=== PATIENT | male | born 1960 | race Caucasian/White ===

== ENCOUNTER 2020-09-28 07:46 | Day surgery (SDC) | payer OTHER ==
[2020-09-26 14:26] LABS: MICROSCOPIC NOT IND
[2020-09-26 14:33] LABS: BASOPHILS % (AUTO) 1 % (0-1); EOSINOPHILS % (AUTO) 2 % (1-7); LYMPHOCYTES % (AUTO) 30 % (22-44); MEAN CORPUSCULAR HEMOGLOBIN 29.5 pg (27.5-34.5); MEAN PLATELET VOLUME 10.1 fL (7.4-10.4); MONOCYTES % (AUTO) 8 % (2-9); NEUTROPHILS % (AUTO) 58 % (42-75); PLATELET COUNT 137 x10^3/uL (130-400); RED BLOOD COUNT 5.04 x10^6/uL (4.38-5.82)
[2020-09-26 14:38] LABS: ANION GAP 4 mmol/L (5-15); CALCIUM 8.9 mg/dL (8.5-10.1); CHLORIDE 109 mmol/L (98-107); CREATININE 1.35 mg/dL (0.7-1.3)
[2020-09-26 14:41] LABS: INTERNATIONAL NORMALIZED RATIO 1.03 (0.93-1.1)
[~2020-09-28] VITALS: Ht 190.5 cm; Wt 106.6 kg
[2020-09-28] MEDS ORDERED: SERT100T32 PO (08:50)
[2020-09-28] MEDS ORDERED: BUSP10TA PO (08:50)
[2020-09-28] MEDS ORDERED: LEVOTHYROXINE PO (08:50)
[2020-09-28] MEDS ORDERED: TAMS-11 PO (08:50)
[2020-09-28] MEDS ORDERED: ATOR20TA37 PO (08:50)
[2020-09-28] MEDS ORDERED: CHLORHEXIDINE 15 ML UDC ONE (08:54)
[2020-09-28] MEDS ORDERED: LACTATED RINGERS 1,000 ML IV SCH (09:00)
[2020-09-28] MEDS ORDERED: CHLORHEXIDINE 15 ML UDC PO ONE (09:00)
[2020-09-28 09:07] VITALS: BP 136/80
[2020-09-28] MEDS ORDERED: hydrALAzine 20 MG/ML, 1ML IV PRN (11:00)
[2020-09-28] MEDS ORDERED: METHOCARBAMOL 1,000 MG in DEXTROSE 5% 100 ML IV PRN (11:00)
[2020-09-28] MEDS ORDERED: ACETAMINOPHEN 325 MG TABLET PO PRN (11:00)
[2020-09-28] MEDS ORDERED: LORazepam 2 MG/ML, 1ML IVPush PRN (11:00)
[2020-09-28] MEDS ORDERED: OXYcodone 5 MG/5 ML ORAL.SOL UDC PO PRN (11:00)
[2020-09-28] MEDS ORDERED: LABETALOL 5MG/ML, 20ML IV PRN (11:00)
[2020-09-28] MEDS ORDERED: PROMETHAZINE 25 MG/ML, 1ML IVPush PRN (11:00)
[2020-09-28] MEDS ORDERED: ONDANSETRON 2MG/ML, 2ML IVPush PRN (11:00)
[2020-09-28] MEDS ORDERED: FENTANYL PF 100 MCG/2ML IV PRN (11:00)
[2020-09-28] MEDS ORDERED: HYDROmorphone 1 MG/ML, 1ML INJ IVPush PRN (11:00)
[2020-09-28] MEDS ORDERED: EPHEDRINE 50 MG/ML, 1ML IVPush PRN (11:00)
[2020-09-28] MEDS ORDERED: PROPOFOL 10 MG/ML, 20ML ONE (11:08)
[2020-09-28] MEDS ORDERED: DEXAMETHASONE 4 MG/ML, 1ML ONE (11:08)
[2020-09-28] MEDS ORDERED: ONDANSETRON 2MG/ML, 2ML ONE (11:08)
[2020-09-28] MEDS ORDERED: CEFAZOLIN 1,000 MG ONE (11:08)
[2020-09-28] MEDS ORDERED: FUROSEMIDE 20 MG/2 ML ONE (11:54)
[2020-09-28] MEDS ORDERED: OPIUM/BELLADONNA SUPP.RECT 16.2-30 MG ONE (11:54)
[2020-09-28] MEDS ORDERED: FENTANYL PF 250 MCG/5ML ONE (12:26)
== END 2020-09-28 15:15 | disposition home or self-care (01) ==
LOC: OUT 07:46
PROVIDERS: ATTEND Urology
DX: N40.1 Benign prostatic hyperplasia with lower urinary tract symptoms (principal); N13.8 Other obstructive and reflux uropathy; Z79.01 Long term (current) use of anticoagulants
CPT/HCPCS: 36415; 52601; 80048; 81003; 85025; 85610; 85730; 87086; 88305; J0690; J1100; J1940; J2405; J2704; J3010; J7120